=== PATIENT | male | born 1970 | race Caucasian/White ===

== ENCOUNTER 2018-07-05 13:16 | Emergency (ER) | payer MEDICARE, OTHER ==
[~2018-07-05] VITALS: Ht 188 cm; Wt 204.1 kg
--- NOTE | 2018-07-05 14:29 | ED Integumentary General ---
General Chief Complaint: Skin/Wound Problems Stated Complaint: LT TOE WOUND CHECK Source: patient Exam Limitations: no limitations History of Present Illness Date Seen by Provider: July 05, 2018 Time Seen by Provider: 14:00 Initial Comments Patient is a 48-year-old diabetic male who presents with left foot redness, swelling chronic in nature with increased left foot/second toe pain after cutting the tip of his toe 4 days ago while trimming his toenails. Patient is currently on an unknown antibiotic and pain medication for this condition. Denies fever chills, nausea vomiting sweats. On exam, the patient has peripheral edema, venous stasis with brawny skin bellow the calf and onychomycosis of all toenails. There is no obvious injury, streaking, oozing, open lesions or gangrene of his toes. Skin is not warm. Both lower extremities/ feet have similar appearance. Patient states his pain is poorly controlled with Tramadol. He contacted his primary care physician who referred him to a painting machine operator. However, the patient did not want wish to wait and presented to the ED for management of his pain. Timing/Duration: week Severity: moderate Location: feet Possible Cause: other Modifying Factors: improves with other Associated Symptoms: denies symptoms Allergies and Home Medications Patient Home Medication List Home Medication List Reviewed: Yes Review of Systems Review of Systems Constitutional: no symptoms reported EENTM: no symptoms reported Respiratory: no symptoms reported Cardiovascular: no symptoms reported Gastrointestinal: no symptoms reported Musculoskeletal: no symptoms reported Skin: see HPI Psychiatric/Neurological: See HPI Past Rstjtrd-Lpzrle-Hnfqda Hx Past Med/Social Hx: Reviewed Nursing Past Med/Soc Hx Physical Exam Vital Signs Capillary Refill : General Appearance: WD/WN, no apparent distress HEENT: PERRL/EOMI, normal ENT inspection Neck: supple Respiratory: lungs clear, normal breath sounds Extremities: other (left foot, no obvious injury, streaking, oozing, open lesions or gangrene of his toes. Skin is not warm. Both lower extremities/feet have similar appearance) Departure Communication (Admissions) Patient offered comprehensive evaluation including labs, imaging, cultures and pain medication for her current condition. Patient declines evaluation. He states he is here primarily for pain control and does not additional testing at this time. Plans to follow up with his primary care doctor luci or tomorrow morning and was hoping to have pain medication to get by until that time. I offered to give the patient pain medication in ER, but he does not have a ride home. He declines NSAIDs. He is instructed to return to the emergency department should he change his mind regarding emergent medical evaluation. Impression Primary Impression: Encounter for medical screening examination Disposition: HOME, SELF-CARE Condition: Improved Departure-Patient Inst. Patient Instructions: Cellulitis (Skin Infection), Adult (DC) Add. Discharge Instructions: Please continue current antibiotics and pain medication. Follow up with your PCP later today or tomorrow morning for reevaluation and further management. Return to the ED if you change yourr mind regarding further evaluation. All discharge instructions reviewed with patient and/or family. Voiced understanding. KAYLEIGH SUAREZ DO July 05, 2018 14:29
[2018-07-05 14:30] VITALS: BP 159/117
== END 2018-07-05 14:30 | disposition home or self-care (01) ==
LOC: ER FS 13:19
DX: S91.105D Unspecified open wound of left lesser toe(s) without damage to nail, subsequent encounter (principal); X58.XXXD Exposure to other specified factors, subsequent encounter
CPT/HCPCS: 99282

== ENCOUNTER 2022-07-01 13:09 | Emergency (ER) | payer MEDICARE ==
[~2022-07-01] VITALS: Ht 187 cm; Wt 170.0 kg
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
[2022-07-01 13:32] LABS: BASOPHILS # (AUTO) 0.1 10^3/uL (0.0-0.1); BASOPHILS % (AUTO) 1 % (0-10); EOSINOPHILS # (AUTO) 0.4 10^3/uL (0.0-0.3); EOSINOPHILS % (AUTO) 3 % (0-10); HEMATOCRIT 47 % (40-54); LYMPHOCYTES # (AUTO) 2.3 10^3/uL (1.0-4.0); LYMPHOCYTES % (AUTO) 16 % (12-44); MEAN CORPUSCULAR HEMOGLOBIN 27 pg (25-34); MEAN CORPUSCULAR HGB CONC 32 g/dL (32-36); MEAN CORPUSCULAR VOLUME 85 fL (80-99); MEAN PLATELET VOLUME 11.8 fL (9.0-12.2); MONOCYTES # (AUTO) 1.1 10^3/uL (0.0-1.0); MONOCYTES % (AUTO) 8 % (0-12); NEUTROPHILS # (AUTO) 10.2 10^3/uL (1.8-7.8); NEUTROPHILS % (AUTO) 72 % (42-75); PLATELET COUNT 263 10^3/uL (130-400); WHITE BLOOD COUNT 14.2 10^3/uL (4.3-11.0)
[2022-07-01 13:46] LABS: LYMPHOCYTES % (MANUAL) 17 %; NEUTROPHILS % (MANUAL) 70 %
[2022-07-01 13:47] LABS: EOSINOPHILS % (MANUAL) 3 %; MONOCYTES % (MANUAL) 10 %; PLATELET ESTIMATE NORMAL; PROTHROMBIN TIME PATIENT 13.4 SEC (12.2-14.7); RBC MORPH NORMAL
--- NOTE | 2022-07-01 13:48 | Diagnostic Imaging Report ---
PROCEDURE: CT head without contrast. TECHNIQUE: Multiple contiguous axial images were obtained through the brain without the use of intravenous contrast. Auto Exposure Controls were utilized during the CT exam to meet ALARA standards for radiation dose reduction. INDICATION: Altered mental status. COMPARISON: None available. FINDINGS: CT of the head demonstrates no evidence of an acute intracranial abnormality. There is no evidence of intracranial hemorrhage. There is no extra-axial fluid collection, mass effect or shift. Ziegler and white matter differentiation appear preserved. There is no abnormal hypodensity within the basal ganglia. The ventricles are appropriate in size and configuration. There is no evidence of hydrocephalus. The basilar cisterns are patent. The posterior fossa is unremarkable. Mastoids and visualized paranasal sinuses appear clear. Orbital contents are unremarkable. There is no calvarial abnormality. IMPRESSION: 1. No CT evidence of an acute intracranial abnormality. Dictated by: Dictated on workstation # [id number]
[2022-07-01 13:52] LABS: POTASSIUM 4.5 MMOL/L (3.6-5.0)
[2022-07-01 13:53] LABS: ALBUMIN 3.5 GM/DL (3.2-4.5); BILIRUBIN,TOTAL 0.2 MG/DL (0.1-1.0); CREATININE SERUM 0.67 MG/DL (0.60-1.30); MAGNESIUM 1.9 MG/DL (1.6-2.4); TOTAL PROTEIN 7.6 GM/DL (6.4-8.2)
--- NOTE | 2022-07-01 14:01 | Diagnostic Imaging Report ---
INDICATION: Altered mental status. COMPARISON: None. FINDINGS: A single frontal radiographic view of the chest was obtained and demonstrates normal cardiac silhouette and pulmonary vasculature. Lungs show patchy airspace opacities in both lung bases. There is no large effusion or pneumothorax. Osseous structures show no gross acute abnormalities. IMPRESSION: Patchy bibasilar atelectasis and/or infiltrate. Dictated by: Dictated on workstation # [id number]
[2022-07-01] MEDS ORDERED: levETIRAcetam 1000 mg/NS 100ml 100 ML IV ONE (14:04)
[2022-07-01] MEDS ORDERED: AZITHROMYCIN 250 MG TAB (ZITHROMAX) PO ONE (14:30)
[2022-07-01] MEDS ORDERED: cefTRIAXone IV/IM 1,000 MG in NS (IVPB) 50 ML IV ONE ×2 (14:30→14:45)
[2022-07-01] MEDS ORDERED: cefTRIAXone PRE-MIX 50 ML IV ONE (14:37)
[2022-07-01 16:28] VITALS: BP 136/90
== END 2022-07-01 17:00 | disposition short-term general hospital (02) ==
LOC: EDUNIT# 13:09 → ER FS 13:10
DX: R56.9 Unspecified convulsions (principal); R41.82 Altered mental status, unspecified; D72.829 Elevated white blood cell count, unspecified; F17.210 Nicotine dependence, cigarettes, uncomplicated; Z88.1 Allergy status to other antibiotic agents
CPT/HCPCS: 36415; 70450; 71045; 80053; 83690; 83735; 83880; 84484; 85007; 85027; 85610; 85730; 93005; 99284; G0480; 80320